=== PATIENT | female | born 1980 | race African-American/Black ===

== ENCOUNTER 2017-04-24 16:41 | Emergency (ER) | payer BC ==
[~2017-04-24] VITALS: Ht 175.3 cm; Wt 66.7 kg
[~2017-04-24 16:41] MED LIST: CLARITIN10 MG PO; IRON325 PO; NOHOMEMEDICATIONS; PREDNISONE 20 M20 MG PO; TYLENOL W/CODEI1 TA2 PO; ZOFRAN4 MG PO
[2017-04-24 16:45] VITALS: BP 118/65
== END 2017-04-24 17:37 | disposition home or self-care (01) ==
LOC: ER 16:41
DX: J02.9 Acute pharyngitis, unspecified (principal); E87.6 Hypokalemia; Z87.11 Personal history of peptic ulcer disease; Z98.890 Other specified postprocedural states; Z88.6 Allergy status to analgesic agent; Z91.048 Other nonmedicinal substance allergy status; Z88.8 Allergy status to other drugs, medicaments and biological substances

== ENCOUNTER 2017-12-30 08:04 | Emergency (ER) | payer BC ==
[~2017-12-30] VITALS: Ht 157.5 cm; Wt 61.7 kg
[2017-12-30] MEDS ORDERED: UNICOMPLEX M TA1 TA1 PO (08:09)
[2017-12-30] MEDS ORDERED: PREDNISONE50 MG PO (08:27)
[2017-12-30] MEDS ORDERED: CLARITIN10 MG PO (08:27)
[2017-12-30 08:44] VITALS: BP 115/63
== END 2017-12-30 08:45 | disposition home or self-care (01) ==
LOC: ER 08:04
DX: T78.40XA Allergy, unspecified, initial encounter (principal); X58.XXXA Exposure to other specified factors, initial encounter; Z88.6 Allergy status to analgesic agent; Z88.8 Allergy status to other drugs, medicaments and biological substances